=== PATIENT | female | born 1950 | race Caucasian/White ===

== ENCOUNTER → 2016-08-01 | Outpatient (CLI) | payer OTHER ==
[~2016-08-01] MED LIST: ASPCH81X PO; DICY10CA12 PO; IPRA1AER2 INH; LUTE15CA PO; OMEP10CA2 PO; OMEP20CA9 PO; POTA10CA28 PO; POTA1TAB97 PO; SERT25TA PO; SERT50TA PO; SIMV20TA2 PO; SIMV40TA2 PO; TRIA37.5 PO
--- NOTE | 2016-08-01 17:01 | DIAGNOSTIC IMAGING REPORT ---
CHEST 2 VIEWS ROUTINE CLINICAL HISTORY: Acute bronchitis. Productive cough. COMPARISON STUDY: Chest radiograph 07/17/[address] October 30, 2015. FINDINGS: There is no pneumothorax or pleural effusion. This study is compromised by suboptimal penetration. There is no evidence of pulmonary edema. Hazy bibasilar opacities likely reflect epicardial fat pad or atelectasis. There is no consolidation to suggest pneumonia. The appearance of the chest is unchanged. Borderline cardiomegaly is unchanged. IMPRESSION: No acute findings. No change in appearance of the chest. Electronically signed by: Rakan Ochoa M.D. 08/01/2016 4:59 PM Dictated Date/Time: 08/01/2016 4:58 PM
== END | disposition home or self-care (01) ==
LOC: C.RAD 16:30
PROVIDERS: ATTEND Internal Medicine
DX: J20.9 Acute bronchitis, unspecified (principal); R05 Cough

== ENCOUNTER → 2017-01-02 | Outpatient (CLI) | payer OTHER ==
--- NOTE | 2017-01-05 07:43 | MAMMOGRAPHY REPORT ---
BILATERAL DIGITAL SCREENING MAMMOGRAM TOMOSYNTHESIS WITH CAD: 01/02/2017 CLINICAL HISTORY: Routine screening. Patient has no complaints. TECHNIQUE: Breast tomosynthesis in addition to standard 2D mammography was performed. Current study was also evaluated with a Computer Aided Detection (CAD) system. COMPARISON: Comparison is made to exams dated: 10/16/2015 mammogram, 10/13/2014 mammogram, 08/23/2013 ma mmogram, 08/18/2012 mammogram, 08/18/2011 mammogram, and 08/16/2010 mammogram - [facility]ter. BREAST COMPOSITION: There are scattered areas of fibroglandular density in both breasts. FINDINGS: There is a small 4 mm low-density round mass in the left medial breast at approximately 9: 00 middle depth, for which ultrasound and possible additional spot compression views are recommended for further evaluation. This may represent a cyst. The remainder of both breasts are stable compared to prior exams, without suspicious masses, calcific ations, or areas of architectural distortion noted. IMPRESSION: ACR BI-RADS CATEGORY 0: INCOMPLETE EVALUATION: NEED ADDITIONAL IMAGING EVALUATION Left 9:00 breast mass, for which additional imaging evaluation is recommended. The patient will be c alled to schedule an appointment. Approximately 10% of breast cancers are not detected with mammography. A negative mammographic report should not delay biopsy if a clinically suggestive mass is present. Joanna Eilzondo M.D. ah/:01/02/2017 16:51:28 Pet Ambassador: Paige VILLEGAS(Sarah)(M), [facility] letter sent: Addl Imaging 0 BI-RADS Code: ACR BI-RADS Category 0: Incomplete Evaluation: Need Additional Imaging Evaluation
== END | disposition home or self-care (01) ==
LOC: C.MAMM 10:06
PROVIDERS: ATTEND Internal Medicine
DX: Z12.31 Encounter for screening mammogram for malignant neoplasm of breast (principal); N63 Unspecified lump in breast

== ENCOUNTER → 2017-01-12 | Outpatient (CLI) | payer OTHER ==
--- NOTE | 2017-01-12 12:30 | MAMMOGRAPHY REPORT ---
UNILATERAL LEFT DIGITAL DIAGNOSTIC MAMMOGRAM TOMOSYNTHESIS AND TARGETED LEFT ULTRASOUND: 01/12/2017 CLINICAL HISTORY: Callback from screening mammography for a newly visualized 4 mm low-density round m ass in the lower inner quadrant of the left breast. TECHNIQUE: Spot compression left CC and MLO 2-D and tomosynthesis images were obtained. COMPARISON: Comparison is made to exams dated: 01/02/2017 mammogram, 10/16/2015 mammogram, 10/13/2014 ma mmogram, 08/23/2013 mammogram, 08/18/2012 mammogram, and 08/18/2011 mammogram - [facility] nter. BREAST COMPOSITION: The tissue of the left breast is almost entirely fatty. FINDINGS: There is a circumscribed round lucent centered 3.2 mm mass in the lower inner middle one t hird of the left breast. No associated architectural distortion or clustered microcalcification. A benign rim calcification/oil cyst is seen slightly superior and medial to the newly visualized 3.2 mm mass. Further evaluation with ultrasound was performed. Targeted ultrasound was performed in the 8:00 and 9:00 axes of the left breast. In the 9:00 left claudia ast, 8 cm from the nipple, there is an oval hypoechoic solid versus cystic mass with echogenic halo, measuring 3.3 mm in diameter. No significant increased vascularity. This has the appearance of fat necrosis, and correlates with the mammographic finding. A very short follow-up is recommended to ens ure stability and/or resolution. IMPRESSION: ACR-BI-RADS CATEGORY 3: PROBABLY BENIGN, TARGETED ULTRASOUND ACR-BI-RADS CATEGORY 3: PRO BABLY BENIGN The newly visualized 3.2 mm round lucent centered mass in the lower inner quadrant of the left breast identified mammographically is thought to correlate with benign fat necrosis on ultrasound. The pat ient denies any known trauma and therefore a three-month follow-up left diagnostic mammogram and repe at targeted ultrasound is recommended to ensure stability and/or resolution. These results and recommendations were discussed with the patient at the time of the exam. She tenta tively scheduled a follow-up appointment prior to leaving our department. Approximately 10% of breast cancers are not detected with mammography. A negative mammographic report should not delay biopsy if a clinically suggestive mass is present. Lisa Isaac M.D. ay/:01/12/2017 09:06:10 Accounts Receivable Analyst: Buzz Greenwood RT(R)(M), [facility] letter sent: Follow Up Recommended 3 BI-RADS Code: ACR-BI-RADS Category 3: Probably Benign Ultrasound BI-RADS: ACR-BI-RADS Category 3: Pr obably Benign
== END | disposition home or self-care (01) ==
LOC: C.MAMM 08:33
PROVIDERS: ATTEND Internal Medicine
DX: N63 Unspecified lump in breast (principal)

== ENCOUNTER → 2017-01-27 | Day surgery (SDC) | payer OTHER ==
[2017-01-20 10:37] VITALS: BMI 40.0
[~2017-01-27] VITALS: Ht 152.4 cm; Wt 93.2 kg
[~2017-01-27] MED LIST changes: -IPRA1AER2 INH; +LIDOCAINE HCL 2% 2 ML VIAL (20MG/ML) ONE; -OMEP10CA2 PO; -POTA10CA28 PO; +PROPOFOL IV EMULSION 10 MG/ML 20 ML VIAL IV ONE; -SERT25TA PO; -SIMV40TA2 PO; +SODIUM CHLORIDE 0.9% 500ML 500 ML IV ONE
[2017-01-27 08:29] VITALS: Ht 152.4 cm; Wt 93.2 kg
--- NOTE | 2017-01-27 08:39 | Endo History and Physical ---
History & Physical Date of Service: Jan 27, 2017. Chief Complaint: hx ulcerative colitis Referring Physician: Dr. Cerda History of Present Illness Ulcerative colitis in clinical remission on vedolizumab Past Medical History Arthritis, Fractures, Gastrointestinal Disorder, Anxiety, Glaucoma, CHF, Hypertension, COPD, Depression Past Surgical History Hx Cardiac Surgery: No Hx Internal Defibrillator: No Hx Pacemaker: No Hx Abdominal Surgery: Yes (MICHELLE) Hx of Implantable Prosthesis: No Hx Post-Op Nausea and Vomiting: No Hx Cancer Surgery: Yes (CERVICAL SURGERY "LASER SURGERY" X 2) Hx Thoracic Surgery: No Hx Orthopedic: No Hx Urinary Tract Surgery: No Family History None Social History Smoking Status: Former Smoker Hx Substance Use: No Hx Alcohol Use: No Allergies Coded Allergies: Codeine (Verified Adverse Reaction, Unknown, ACUTE ABD DISCOMFORT, N/V/D, 01/27/17) Current Medications Reported Home Medications Medications Dose Route/Sig Max Daily Dose Days Date Category Dicyclomine Hcl 10 Mg Cap 1 Cap PO TID PRN 30 01/20/17 Reported Lutein (Lutein-Zeaxanthin) 1 Cap Cap 1 Cap PO QAM 01/20/17 Reported K-Tab (Potassium Chloride) 20 Meq Tab 1 Tab PO BID 01/20/17 Reported Aspirin Chewable (Aspirin) 81 Mg Chew 81 Mg PO QAM 01/20/17 Reported Zoloft (Sertraline HCl) 50 Mg Tab 50 Mg PO QAM 01/20/17 Reported Prilosec (Omeprazole) 20 Mg Cap 20 Mg PO QAM 01/20/17 Reported Zocor (Simvastatin) 20 Mg Tab 20 Mg PO HS 01/20/17 Reported Dyazide 37.5MG/25MG (Triamterene/HCTZ) Cap 1 Tab PO QAM 06/05/14 Reported Vital Signs Weight (Kilograms): 93.18 Height (Feet): 5 Height (Inches): 0 Date Time Temp Pulse Resp B/P (MAP) Pulse Ox O2 Delivery O2 Flow Rate FiO2 01/27/17 08:34 36.5 85 20 128/83 (98) 96 Room Air Physical Exam General Appearance: WD/WN, no apparent distress Respiratory/Chest: Auscultation: breath sounds normal, no wheezing Cardiovascular: Heart Auscultation: RRR, no murmurs Abdomen: Inspection & Palpation: soft, no tenderness, guarding & rebound Assessment and Plan Colonoscopy today.
--- NOTE | 2017-01-27 09:38 | Discharge Instructions ---
Endoscopy Patient Instructions Date / Procedure(s) Performed Jan 27, 2017. Colonoscopy Allergy Information Coded Allergies: Codeine (Verified Adverse Reaction, Unknown, ACUTE ABD DISCOMFORT, N/V/D, 01/27/17) Discharge Date / Findings Jan 27, 2017. Endoscopic healing of ulcerative colitis. Biopsies pending. Medication Instructions Stopped Medication(s): blood pressure pill Restart Stopped Medication(s): Resume all medications today. Provider Instructions Activity Restrictions - No exercising or heavy lifting for 24 hours. - Do not drink alcohol the day of the procedure. - Do not drive a car or operate machinery until the day after the procedure. - Do not make any important decisions or sign important papers in 24 hours after the procedure. Following Day: - Return to full activity which may include returning to work/school. Diet Start your diet with liquids and light foods (jello, soup, juice, toast). Then eat your usual diet if not nauseated. Treatment For Common After Affects For mild abdominal pain, bloating, or excessive gas: - Rest - Eat lightly - Lie on right side Follow-Up Information Follow-up with Dr. Cerda as scheduled Anesthesia Information What You Should Know You have had a procedure that required some medicine to reduce anxiety and discomfort. This treatment is called moderate sedation. After receiving the treatment, you may be sleepy, but you will be able to breathe on your own. The effects of the treatment may last for several hours. Follow these instructions along with Activity/Diet recommendations noted above: * Do NOT do anything where dizziness or clumsiness would be dangerous. * Rest quietly at home today, then you can be up and about tomorrow. * Have a responsible person stay with you the rest of today. * You may have had an I.V. today. If so, you may take the dressing off later today. Recommendations Call your doctor if: * Trouble breathing * Continuous vomiting for more than 24 hours * Temperature above 101 degrees * Severe abdominal pain or bloating * Pain not relieved by pain medicine ordered * There is increased drainage or redness from any incision * A large amount of rectal bleeding greater than 2-3 tablespoons. (If you had a polyp/s removed or have hemorrhoids, a small amount of blood - from the rectum is to be expected.) * You have any unanswered questions or concerns. IN THE EVENT OF A SERIOUS EMERGENCY, GO TO THE NEAREST EMERGENCY ROOM Your discharge instructions were prepared by provider Lobito Chappell. Patient Instructions Signature Page Chloé Rachel Patient (or Guardian) Signature/Date: I have read and understand the instructions given to me by my caregivers. Caregiver/RN/Doctor Signature/Date: The above-named patient and/or guardian has received patient instructions on this date. + Original Patient Signature Page (only) stays with chart. Please make copy for patient.
--- NOTE | 2017-01-27 09:39 | Anesthesiology Progress Note ---
Anesthesia Post Op Note Date & Time Jan 27, 2017 at 09:39 Vital Signs Pain Intensity: 0 Vital Signs Past 12 Hours Date Time Temp Pulse Resp B/P (MAP) Pulse Ox O2 Delivery O2 Flow Rate FiO2 01/27/17 09:22 80 20 106/68 (81) 95 Room Air 01/27/17 08:34 36.5 85 20 128/83 (98) 96 Room Air Notes Mental Status: alert / awake / arousable, participated in evaluation Pt Amnestic to Procedure: Yes Nausea / Vomiting: adequately controlled Pain: adequately controlled Airway Patency, RR, SpO2: stable & adequate BP & HR: stable & adequate Hydration State: stable & adequate Anesthetic Complications: no major complications apparent
[2017-01-27 09:52] VITALS: BP 123/95; PULSE 86; O2SAT 95
--- NOTE | 2017-01-28 00:14 | GI REPORT ---
Procedure Date: 01/27/2017 8:43 AM Procedure: Colonoscopy Indications: High risk colon cancer surveillance: Ulcerative left sided colitis Medicines: Propofol per Anesthesia Complications: No immediate complications. Estimated blood loss: None. Estimated Blood Loss: Estimated blood loss: none. Procedure: Pre-Anesthesia Assessment: - Prior to the procedure, a History and Physical was performed, and patient medications, allergies and sensitivities were reviewed. The patient's tolerance of previous anesthesia was reviewed. - ASA Grade Assessment: III - A patient with severe systemic disease. After I obtained informed consent, the scope was passed under direct vision. Throughout the procedure, the patient's blood pressure, pulse, and oxygen saturations were monitored continuously. The Scope was introduced through the anus and advanced to the terminal ileum, with identification of the appendiceal orifice and IC valve. The colonoscopy was performed with ease. The patient tolerated the procedure well. The quality of the bowel preparation was excellent. The bowel preparation used was split dose MIralax. Findings: There was no inflammation. There was a loss of haustral folds in the sigmoid colon. This was graded as Gallego Score 0 (normal or inactive disease). Four biopsies were taken every 10 cm with a cold forceps from the entire colon for ulcerative colitis surveillance. These biopsy specimens from the cecum, ascending colon, transverse colon, descending colon, sigmoid colon and rectum were sent to Pathology. Impression: - Endoscopic healing of left sided colitis. Surveillance biopsies obtained. - Normal mucosa to the terminal ileum with retroflexed views of the ascending colon and rectum. Recommendation: - Await pathology results. - Discharge patient to home (with escort). Lobito Chappell M.D. Lobito Chappell MD 01/27/2017 9:34:52 AM This report has been signed electronically. Note Initiated On: 01/27/2017 8:43 AM I attest to the content of the Intraoperative Record and orders documented therein, exceptions below
== END | disposition home or self-care (01) ==
LOC: C.GI 08:03
PROVIDERS: ATTEND Internal Medicine Gastroenterology
DX: Z12.11 Encounter for screening for malignant neoplasm of colon (principal); K51.90 Ulcerative colitis, unspecified, without complications; Z90.49 Acquired absence of other specified parts of digestive tract; Z87.891 Personal history of nicotine dependence

== ENCOUNTER → 2017-03-13 | Outpatient (CLI) | payer OTHER ==
[~2017-03-13] MED LIST changes: -LIDOCAINE HCL 2% 2 ML VIAL (20MG/ML) ONE; +OPTIRAY 320 IV PRN; -PROPOFOL IV EMULSION 10 MG/ML 20 ML VIAL IV ONE; -SODIUM CHLORIDE 0.9% 500ML 500 ML IV ONE
--- NOTE | 2017-03-13 09:26 | DIAGNOSTIC IMAGING REPORT ---
ABD/PELVIS IV AND ORAL CONT HISTORY: 66 years-old Female M79.609 Limb painto follow right cutaneous nerve given symptoms history of ulcerative colitis. COMPARISON: CT abdomen and pelvis 08/07/2013 TECHNIQUE: Multiple axial CT images of the abdomen and pelvis were obtained following the intravenous administration of 118 mL Optiray 320. Oral contrast also administered. A dose lowering technique was used consistent with the principals of MARIVEL. FINDINGS: There is mild dependent bibasilar atelectasis. No pneumoperitoneum. The imaged inferior cardiac chambers are unremarkable. There is hepatomegaly with hepatic steatosis. The spleen, pancreas and adrenal glands are unremarkable. Prior cholecystectomy. Scattered low attenuating lesions of the kidneys are too small to characterize however suggest cysts. No renal calculi or hydronephrosis identified. Ureters, urinary bladder, uterus and adnexa are unremarkable. There is mild atherosclerotic plaquing of the abdominal aorta. No bulky retroperitoneal adenopathy. There is minimal fluid within the distal esophagus which may reflect reflux. There is no bowel obstruction. Focal narrowing of the mid sigmoid colon as seen on image 294 of series 3 appears unchanged from prior study dated 08/07/2013, suspicious for postinflammatory stricture. No surrounding inflammatory changes or wall thickening. Sigmoid colon has a relative ahaustral appearance without evidence of active inflammatory change. The appendix appears normal. Soft tissues are unremarkable. The bones appear intact. Sclerosis with intervertebral disc space narrowing is seen at T9-T10 L2-L3 and L3-L4, likely related to degenerative changes. Changes at T9-T10 have progressed from prior. IMPRESSION: 1. No acute intra-abdominal or intrapelvic abnormality identified. 2. Ahaustral appearance of the sigmoid colon suggests chronic changes related to patient's history of ulcerative colitis. Focal narrowing of the mid sigmoid colon as above appears unchanged from prior study 08/07/2013 suggesting chronic postinflammatory stricture. No bowel obstruction or evidence of acute disease. 3. Normal appendix. 4. Hepatomegaly with hepatic steatosis. 5. Prior cholecystectomy. 6. Progressive degenerative disc disease at T9-T10 The above report was generated using voice recognition software. It may contain grammatical, syntax or spelling errors. Electronically signed by: Bob Brooks M.D. 03/13/2017 9:25 AM Dictated Date/Time: 03/13/2017 9:14 AM
== END | disposition home or self-care (01) ==
LOC: C.CTS 08:44
PROVIDERS: ATTEND Internal Medicine
DX: M79.604 Pain in right leg (principal); R16.0 Hepatomegaly, not elsewhere classified; K76.0 Fatty (change of) liver, not elsewhere classified

== ENCOUNTER 2017-07-24 10:53 | Emergency (ER) | payer OTHER ==
[~2017-07-24] VITALS: Ht 152.4 cm; Wt 95.8 kg
[~2017-07-24 10:53] MED LIST changes: +GABA-113 PO; -LUTE15CA PO; -OPTIRAY 320 IV PRN
[2017-07-24 11:13] VITALS: TEMP 36.7; Ht 152.4 cm; Wt 95.8 kg
[2017-07-24 11:33] VITALS: O2SAT 94
[2017-07-24 12:19] LABS: BASO % 0.4 %; BASO ABS # 0.02 K/uL (0-0.2); EOS ABS # 0.19 K/uL (0-0.5); HEMATOCRIT 43.6 % (37-47); HEMOGLOBIN 14.8 g/dL (12.0-16.0); IG# 0.01 K/uL (0.00-0.02); LYMPH % 15.3 %; LYMPH ABS # 0.73 K/uL (1.2-3.4); MEAN CELL VOLUME 93.6 fL (80-100); MEAN CORPUSCULAR HEMOGLOBIN 31.8 pg (25-34); MEAN CORPUSCULAR HGB CONC 33.9 g/dl (32-36); MEAN PLATELET VOLUME 10.1 fL (7.4-10.4); MONO % 7.3 %; MONO ABS # 0.35 K/uL (0.11-0.59); NEUT % 72.8 %; NEUT ABS # 3.48 K/uL (1.4-6.5); PLATELET COUNT 255 K/uL (130-400); RED CELL DISTRIBUTION WIDTH CV 13.9 % (11.5-14.5); RED CELL DISTRIBUTION WIDTH SD 47.5 fL (36.4-46.3); WHITE BLOOD COUNT 4.78 K/uL (4.8-10.8)
[2017-07-24 12:27] LABS: ALBUMIN 3.9 gm/dl (3.4-5.0); CREATININE 0.83 mg/dl (0.60-1.20); POTASSIUM 3.7 mmol/L (3.5-5.1)
[2017-07-24 12:30] LABS: TOTAL PROTEIN 8.3 gm/dl (6.4-8.2)
[2017-07-24] MEDS ORDERED: LORAZEPAM 2 MG/ML 1 ML VIAL IV STA (12:38)
--- NOTE | 2017-07-24 12:39 | EMERGENCY ROOM VISIT NOTE ---
History Report prepared by Luis Carlos: Stephen Morel Under the Supervision of: Dr. Kathryn Puentes D.O. First contact with patient: 12:20 Chief Complaint: HEADACHE Stated Complaint: FOG IN LEFT EYE, LEFT SIDED HEAD PAIN History of Present Illness The patient is a 67 year old female who presents to the Emergency Room with complaints of a constant headache sine this morning. The patient states that she was bending over the shower this morning when she got this pain in the left back of her head. She additionally states that yesterday morning she woke up and had a fog in her left eye for about 10 minutes until it resolved. The patient states that she did not have the headache yesterday. The patient states that she does not usually get migraines, and this is different than her past headaches. No thunderclap onset, and denies that this is the worst headache of her life. She states that she has mild dizziness. She denies any neck pain, numbness, and tingling. Denies nausea and vomiting. The patient states that she has a history of COPD, and she does not have a family history of headaches. She denies any recent change in exercise or any cold symptoms, though she states that she had the flu in May. She notes that she coughs and sneezes a lot, though this has been chronic. The patient additionally states that she has a history of papilledema 40 yrs ago which was resolved with a spinal tap, and it has not recurred since then. Source of History: patient Onset: this morning Position: head Quality: ache Timing: constant Associated Symptoms: No neck pain, No numbness Note: Associated symptoms: A fog in the left eye, mild dizziness Review of Systems See HPI for pertinent positives & negatives. A total of 10 systems reviewed and were otherwise negative. Past Medical & Surgical Medical Problems: (1) COPD (chronic obstructive pulmonary disease) Family History Acute myocardial infarction FH: coronary artery disease Hypertension Social History Smoking Status: Never Smoker Drug Use: none Marital Status: Current/Historical Medications Scheduled Aspirin (Aspirin Chewable), 81 MG PO QAM Gabapentin (Neurontin), 300 MG PO BID Omeprazole (Prilosec), 20 MG PO QAM Potassium Chloride (K-Tab), 1 TAB PO BID Sertraline (Zoloft), 50 MG PO QAM Simvastatin (Zocor), 20 MG PO HS Triamterene/Hctz (Dyazide 37.5MG/25MG), 1 TAB PO QAM Scheduled PRN Dicyclomine Hcl (Dicyclomine Hcl), 1 CAP PO TID PRN for ABDOMINAL PAIN Allergies Coded Allergies: Codeine (Verified Adverse Reaction, Unknown, ACUTE ABD DISCOMFORT, N/V/D, 07/24/17) Physical Exam Vital Signs Date Time Temp Pulse Resp B/P (MAP) Pulse Ox O2 Delivery O2 Flow Rate FiO2 07/24/17 16:32 80 20 152/102 98 Room Air 07/24/17 13:37 84 20 147/90 92 07/24/17 13:13 81 18 169/102 92 07/24/17 12:12 74 07/24/17 11:33 94 Room Air 07/24/17 11:30 80 20 146/91 95 Room Air 07/24/17 11:13 36.7 81 18 194/103 94 Room Air Physical Exam GENERAL: Obese, alert, well appearing, well nourished, no distress, non-toxic HEAD: No reproducible tenderness to palpation in left parieto-occipital region EYE EXAM: normal conjunctiva, PERRL and EOM's grossly intact, and no nystagmus. Funduscopic exam revealed no evidence of papilledema, normal appearing vessels, unable to visualize entire optic disc. OROPHARYNX: no exudate, no erythema, lips, buccal mucosa, and tongue normal and mucous membranes are moist NECK: supple, no nuchal rigidity, no adenopathy, non-tender LUNGS: Clear to auscultation. Normal chest wall mechanics HEART: no murmurs, S1 normal and S2 normal ABDOMEN: abdomen soft, non-tender, normo-active bowel sounds, no masses, no rebound or guarding. BACK: Back is symmetrical on inspection and there is no deformity, no midline tenderness, no CVA tenderness. SKIN: no rashes and no bruising UPPER EXTREMITIES: upper extremities are grossly normal. LOWER EXTREMITIES: No pitting edema. NEURO EXAM: Normal sensorium, cranial nerves II-XII [grossly] intact, normal speech, no [gross] weakness of arms, no [gross] weakness of legs. [No drift. Finger to nose intact. Gross sensation intact. ambulates with a steady gait. Medical Decision & Procedures ER Provider Diagnostic Interpretation: Radiology results have been interpreted by the radiologist and reviewed by me. Brain MRI WITH AND WITHOUT CONTRAST HISTORY: vision change, left occipital headache TECHNIQUE: Multiplanar multisequence MRI of the brain was performed both before and after the intravenous administration of contrast. COMPARISON STUDY: None. FINDINGS: There are no areas of restricted diffusion to suggest acute infarction. Mild mucosal thickening within the sphenoid sinuses. Incidental note is made of a partially empty sella. A few scattered foci of T2 hyperintensity seen within the periventricular white matter. These are nonspecific but suggestive of mild microvascular ischemic change. The orbits are unremarkable. The mastoid air cells are clear. The ventricles and sulci are within normal limits for age. There is no mass, hematoma, midline shift. The major vascular flow-voids at the skull base are well maintained. Postcontrast sequences show no areas of abnormal enhancement. IMPRESSION: No acute intracranial abnormality. Presumed mild microvascular ischemic change. Electronically signed by: Jer Fam M.D. 07/24/2017 2:36 PM Dictated Date/Time: 07/24/2017 2:26 PM CAROTID ARTERY ULTRASOUND CLINICAL HISTORY: Headache. Vision change. Neurologic symptoms. COMPARISON STUDY: None. TECHNIQUE: Real-time, grayscale, and color Doppler sonography of the carotid and vertebral arteries was performed. Images were viewed in the transverse and longitudinal planes. FINDINGS: There is minimal atherosclerotic plaque. Velocity measurements are listed below. COMMON CAROTID PEAK SYSTOLIC VELOCITY (CM/S): RIGHT 61 LEFT 53 ICA PEAK SYSTOLIC VELOCITY (CM/S): RIGHT 43 LEFT 58 Systolic ratios between the internal to common carotid arteries were normal. Antegrade flow is seen in the vertebral arteries. The external carotid arteries are patent. Blood pressure in the right arm measured 140/100. Blood pressure in the left arm measured 150/100. IMPRESSION: No evidence of a hemodynamically significant stenosis. Electronically signed by: Rakan Ochoa M.D. 07/24/2017 4:13 PM Dictated Date/Time: 07/24/2017 4:12 PM Laboratory Results 07/24/17 11:52 Red Blood Count 4.66, Mean Corpuscular Volume 93.6, Mean Corpuscular Hemoglobin 31.8, Mean Corpuscular Hemoglobin Concent 33.9, Mean Platelet Volume 10.1, Neutrophils (%) (Auto) 72.8, Lymphocytes (%) (Auto) 15.3, Monocytes (%) (Auto) 7.3, Eosinophils (%) (Auto) 4.0, Basophils (%) (Auto) 0.4, Neutrophils # (Auto) 3.48, Lymphocytes # (Auto) 0.73, Monocytes # (Auto) 0.35, Eosinophils # (Auto) 0.19, Basophils # (Auto) 0.02 07/24/17 11:52 Test 07/24/17 11:52 White Blood Count 4.78 K/uL (4.8-10.8) Red Blood Count 4.66 M/uL (4.2-5.4) Hemoglobin 14.8 g/dL (12.0-16.0) Hematocrit 43.6 % (37-47) Mean Corpuscular Volume 93.6 fL (80-100) Mean Corpuscular Hemoglobin 31.8 pg (25-34) Mean Corpuscular Hemoglobin Concent 33.9 g/dl (32-36) Platelet Count 255 K/uL (130-400) Mean Platelet Volume 10.1 fL (7.4-10.4) Neutrophils (%) (Auto) 72.8 % Lymphocytes (%) (Auto) 15.3 % Monocytes (%) (Auto) 7.3 % Eosinophils (%) (Auto) 4.0 % Basophils (%) (Auto) 0.4 % Neutrophils # (Auto) 3.48 K/uL (1.4-6.5) Lymphocytes # (Auto) 0.73 K/uL (1.2-3.4) Monocytes # (Auto) 0.35 K/uL (0.11-0.59) Eosinophils # (Auto) 0.19 K/uL (0-0.5) Basophils # (Auto) 0.02 K/uL (0-0.2) RDW Standard Deviation 47.5 fL (36.4-46.3) RDW Coefficient of Variation 13.9 % (11.5-14.5) Immature Granulocyte % (Auto) 0.2 % Immature Granulocyte # (Auto) 0.01 K/uL (0.00-0.02) Erythrocyte Sedimentation Rate 29 mm/hr (0-21) Anion Gap 6.0 mmol/L (3-11) Est Creatinine Clear Calc Drug Dose 69.1 ml/min Estimated GFR () 85.2 Estimated GFR (Non- 73.5 BUN/Creatinine Ratio 17.2 (10-20) Calcium Level 9.0 mg/dl (8.5-10.1) Total Bilirubin 0.6 mg/dl (0.2-1) Aspartate Amino Transf (AST/SGOT) 30 U/L (15-37) Alanine Aminotransferase (ALT/SGPT) 50 U/L (12-78) Alkaline Phosphatase 97 U/L (45-117) Total Protein 8.3 gm/dl (6.4-8.2) Albumin 3.9 gm/dl (3.4-5.0) Globulin 4.4 gm/dl (2.5-4.0) Albumin/Globulin Ratio 0.9 (0.9-2) Laboratory results per my review. Medications Administered Medications (Trade) Dose Ordered Sig/Hudson Route Start Time Stop Time Status Last Admin Dose Admin Lorazepam (Ativan Inj) 1 mg NOW STAT IV 07/24/17 12:38 07/24/17 12:40 DC 07/24/17 13:13 1 MG ED Course 1220: The patient was evaluated in room C11. A complete history and physical exam was performed. 1238: Ativan 1mg IV 1457: I discussed the patient's case with Dr. Vilchis - Neurology, and she recommends adding a sed rate and carotids. If she is fine, then she can follow up as an outpatient. 1630: Upon reevaluation, the patient is feeling better. I discussed the findings and the treatment plan with the patient. She verbalizes agreement and understanding. She was discharged home. Medical Decision Differential diagnosis: Etiologies such as migraine headache, meningitis, sinusitis, CO exposure, ICH, SAH, infection, tumor, headache, sinus thrombosis, arterial dissection, as well as others were entertained. Patient well-appearing here, no change in headaches, no recurrent vision changes. MRI/MRA reassuring, labs reassuring. Discussed case with neurology who recommended additional carotid imaging and sedimentation rate. Both of those are reassuring also. Patient advised to follow-up with her systems security analyst who she has seen previously, as well as neurology regarding headache. Discussed with patient symptoms to watch and return for, she verbalized understanding was agreeable with plan. I do not suspect subarachnoid hemorrhage, meningitis/encephalitis, no evidence of dissection, venous sinus thrombus, CVA, cerebellar infarct/bleed. Patient with no recurrent vision changes and no pain over the temples, doubt temporal arteritis. Patient's presentation and symptoms vision changes as yesterday not consistent with acute angle closure glaucoma or acute retinal detachment. Patient states normal vision rest of yesterday and into today. Unclear if this is an atypical presentation of complex migraine. Patient well-appearing at time of discharge, ambulated with steady gait, no vision changes, only mild left parietal occipital headache at that time. Patient comfortable with plan as discussed, discussed symptoms to watch and return for which she verbalized understanding was agreeable with. Medication Reconcilliation Current Medication List: was personally reviewed by me Blood Pressure Screening Patient's blood pressure: Elevated blood pressure Blood pressure disposition: Elevated BP felt to be situational Consults Time Called: [id number] Consulting Physician: Dr. Vilchis - Neurology Returned Call: [phone] I discussed the patient's case with Dr. Vilchis - Neurology, and she recommends adding a sed rate and carotids. If she is fine, then she can follow up as an outpatient. Impression Primary Impression: Headache Additional Impression: Change in vision Scribe Attestation The scribe's documentation has been prepared under my direction and personally reviewed by me in its entirety. I confirm that the note above accurately reflects all work, treatment, procedures, and medical decision making performed by me. Departure Information Dispostion Home / Self-Care Referrals Cesar Cerda M.D. (PCP) Forms HOME CARE DOCUMENTATION FORM, IMPORTANT VISIT INFORMATION Patient Instructions My [facility] Additional Instructions Please follow up with your systems security analyst. Please make sure you're drinking plenty of water to stay well-hydrated. You may use Tylenol and ibuprofen as needed for pain. If you have any persistent headaches, please follow up with the neurologist listed below. If you have worsening headache pain, develop vomiting, fevers, recurrent vision changes, feel dizzy or lightheaded, or you' ve any other new concerns, please return the emergency room. Problem Qualifiers Primary Impression: Headache Headache type: unspecified Headache chronicity pattern: acute headache Intractability: not intractable Qualified Codes: R51 - Headache
[2017-07-24] MEDS ORDERED: GADAVIST IV PRN (14:30)
--- NOTE | 2017-07-24 14:37 | DIAGNOSTIC IMAGING REPORT ---
Brain MRI WITH AND WITHOUT CONTRAST HISTORY: vision change, left occipital headache TECHNIQUE: Multiplanar multisequence MRI of the brain was performed both before and after the intravenous administration of contrast. COMPARISON STUDY: None. FINDINGS: There are no areas of restricted diffusion to suggest acute infarction. Mild mucosal thickening within the sphenoid sinuses. Incidental note is made of a partially empty sella. A few scattered foci of T2 hyperintensity seen within the periventricular white matter. These are nonspecific but suggestive of mild microvascular ischemic change. The orbits are unremarkable. The mastoid air cells are clear. The ventricles and sulci are within normal limits for age. There is no mass, hematoma, midline shift. The major vascular flow-voids at the skull base are well maintained. Postcontrast sequences show no areas of abnormal enhancement. IMPRESSION: No acute intracranial abnormality. Presumed mild microvascular ischemic change. Electronically signed by: Jer Fam M.D. 07/24/2017 2:36 PM Dictated Date/Time: 07/24/2017 2:26 PM
--- NOTE | 2017-07-24 16:15 | DIAGNOSTIC IMAGING REPORT ---
CAROTID ARTERY ULTRASOUND CLINICAL HISTORY: Headache. Vision change. Neurologic symptoms. COMPARISON STUDY: None. TECHNIQUE: Real-time, grayscale, and color Doppler sonography of the carotid and vertebral arteries was performed. Images were viewed in the transverse and longitudinal planes. FINDINGS: There is minimal atherosclerotic plaque. Velocity measurements are listed below. COMMON CAROTID PEAK SYSTOLIC VELOCITY (CM/S): RIGHT 61 LEFT 53 ICA PEAK SYSTOLIC VELOCITY (CM/S): RIGHT 43 LEFT 58 Systolic ratios between the internal to common carotid arteries were normal. Antegrade flow is seen in the vertebral arteries. The external carotid arteries are patent. Blood pressure in the right arm measured 140/100. Blood pressure in the left arm measured 150/100. IMPRESSION: No evidence of a hemodynamically significant stenosis. Electronically signed by: Rakan Ochoa M.D. 07/24/2017 4:13 PM Dictated Date/Time: 07/24/2017 4:12 PM
[2017-07-24 16:32] VITALS: BP 152/102; PULSE 80; O2SAT 98
== END 2017-07-24 16:56 | disposition home or self-care (01) ==
LOC: C.EDB 10:54 → C.EDC 16:56
DX: R51 Headache (principal); H53.8 Other visual disturbances; J44.9 Chronic obstructive pulmonary disease, unspecified; Z79.82 Long term (current) use of aspirin; Z82.49 Family history of ischemic heart disease and other diseases of the circulatory system

== ENCOUNTER → 2018-01-04 | Outpatient (CLI) | payer OTHER ==
[~2018-01-04] MED LIST changes: +BUDE1TAB
--- NOTE | 2018-01-05 15:24 | MAMMOGRAPHY REPORT ---
BILATERAL DIGITAL SCREENING MAMMOGRAM TOMOSYNTHESIS WITH CAD: 01/04/2018 CLINICAL HISTORY: Routine screening. TECHNIQUE: The study was acquired using full field digital technology and interpreted from soft copy. Breast tomosynthesis in addition to standard 2D mammography was performed. Current study was also ev aluated with a Computer Aided Detection (CAD) system. COMPARISON: Comparison is made to exams dated: 04/14/2017 mammogram, 01/02/2017 mammogram, 10/16/2015 m ammogram, 10/13/2014 mammogram, 08/23/2013 mammogram, and 08/18/2012 mammogram - [facility] nter. BREAST COMPOSITION: The tissue of both breasts is almost entirely fatty. FINDINGS: There is resolution of the previously observed focal asymmetry in the lower inner left [address], confirming benignity. A few scattered benign rim calcifications. No suspicious mass, architectur al distortion or cluster of microcalcifications is seen. IMPRESSION: ACR BI-RADS CATEGORY 1: NEGATIVE There is no mammographic evidence of malignancy. A 1 year screening mammogram is recommended.( 019) The patient will receive written notification of the results. Some breast cancers are not detected with mammography. A negative mammographic report should not kandace y biopsy if a clinically suggestive mass is present. Lisa Isaac M.D. ay/:01/04/2018 20:43:30 Inspector Of Dredging: RT Nicholas(Sarah)(Malinda), [facility] letter sent: Normal 1/2 BI-RADS Code: ACR BI-RADS Category 1: Negative
== END | disposition home or self-care (01) ==
LOC: C.MAMM 14:44
PROVIDERS: ATTEND Internal Medicine
DX: Z12.31 Encounter for screening mammogram for malignant neoplasm of breast (principal)